=== PATIENT | female | born 1950 | race Caucasian/White ===

== ENCOUNTER 2021-05-17 22:31 | Emergency (ER) | payer BC, MEDICARE ==
[~2021-05-17] VITALS: Ht 167.6 cm; Wt 106.8 kg
[~2021-05-17 22:31] MED LIST: FURO20TA4 PO; INSU100V9 SQ; LOSA50TA64 PO; NOVLG SQ
[2021-05-17] MEDS ORDERED: dexamethasone 4mg tablet PO ONE (22:50)
[2021-05-17] MEDS ORDERED: DEXAMETHASONE 6 MG TABLET PO ONE (22:55)
[2021-05-17 23:20] LABS: BASOPHILS # (AUTO) 0.1 X10'3 (0-0.2); BASOPHILS % (AUTO) 1.9 % (0-1); EOSINOPHILS # (AUTO) 0.1 X10'3 (0-0.9); EOSINOPHILS % (AUTO) 1.8 % (0-6); HEMATOCRIT 38.9 % (35.0-45.0); HEMOGLOBIN 13.4 g/dl (12.0-16.0); LYMPHOCYTES # (AUTO) 1.2 X10'3 (1.1-4.8); LYMPHOCYTES % (AUTO) 19.5 % (21-51); MEAN CORPUSCULAR HEMOGLOBIN 32.7 PG (27.0-31.0); MEAN CORPUSCULAR HGB CONC 34.4 g/dL (33.0-36.5); MEAN PLATELET VOLUME 7.9 FL (7.4-10.4); MONOCYTES # (AUTO) 0.8 X10'3 (0-0.9); MONOCYTES % (AUTO) 12.4 % (2-12); NEUTROPHILS % (AUTO) 64.4 % (42-75); PLATELET COUNT 144 X10'3 (140-440); RED BLOOD COUNT 4.09 X10'6 (4.20-5.60); RED CELL DISTRIBUTION WIDTH 13.9 % (11.5-14.5); WHITE BLOOD COUNT 6.2 X10'3 (4.5-11.0)
[2021-05-17 23:38] LABS: ALANINE AMINOTRANSFERASE 29 U/L (12-78); ALBUMIN 3.1 G/DL (3.4-5.0); ALBUMIN/GLOBULIN RATIO 0.8 (1.1-1.5); ALKALINE PHOSPHATASE 97 IU/L (46-116); ANION GAP 8 (8-16); ASPARTATE AMINO TRANSFERASE 24 U/L (10-37); BILIRUBIN,TOTAL 0.8 MG/DL (0.1-1.0); BLOOD UREA NITROGEN 23 MG/DL (7-18); BUN/CREATININE RATIO 21.3 (6.6-38.0); CALCIUM 8.7 MG/DL (8.5-10.1); CHLORIDE 104 MMOL/L (99-107); CREATININE 1.08 MG/DL (0.40-0.90); GLUCOSE 280 MG/DL (70-104); SODIUM 138 MMOL/L (135-145); TOTAL CARBON DIOXIDE 26.3 MMOL/L (24-32); TOTAL PROTEIN 7.2 G/DL (6.4-8.2); eGFR 50 ML/MIN
[2021-05-17 23:52] LABS: C-REACTIVE PROTEIN 3.51 MG/DL (0.0-0.5); FERRITIN 593 NG/ML (8-252); LACTATE DEHYDROGENASE 186 U/L (81-234)
[2021-05-18 00:49] LABS: D-DIMER 0.26 MG/L FEU (0-0.50)
[2021-05-18] MEDS ORDERED: DEXA6TAB6 PO (01:09)
[2021-05-18 01:15] VITALS: BP 128/49
== END 2021-05-18 01:13 | disposition home or self-care (01) ==
LOC: ER 22:32
DX: U07.1 COVID-19 (principal); R06.02 Shortness of breath; E11.9 Type 2 diabetes mellitus without complications; E03.9 Hypothyroidism, unspecified; I10 Essential (primary) hypertension; Z90.89 Acquired absence of other organs; Z86.73 Personal history of transient ischemic attack (TIA), and cerebral infarction without residual deficits; Z87.01 Personal history of pneumonia (recurrent); Z90.710 Acquired absence of both cervix and uterus; Z98.890 Other specified postprocedural states; Z79.4 Long term (current) use of insulin; Z79.899 Other long term (current) drug therapy
CPT/HCPCS: 36415; 71045; 80053; 82728; 83615; 84145; 85025; 85379; 85384; 86140; 99284; J8540